=== PATIENT | female | born 1960 | race Two or more races ===

== ENCOUNTER 2019-08-15 07:21 | Outpatient (CLI) | payer OTHER | END 2019-08-15 10:00 | disposition home or self-care (01) | LOC: NUCLEAR 07:21 | DX: I73.9 Peripheral vascular disease, unspecified (principal) ==

== ENCOUNTER → 2019-08-17 | Outpatient (CLI) | payer OTHER | END | disposition home or self-care (01) | LOC: NUCLEAR 07:49 | DX: I87.2 Venous insufficiency (chronic) (peripheral) (principal) ==